=== PATIENT | female | born 1975 | race Caucasian/White ===

== ENCOUNTER → 2017-03-14 | Outpatient (CLI) | payer OTHER | LOC: COL.RAD 10:21 | DX: R10.32 Left lower quadrant pain (principal); Z90.710 Acquired absence of both cervix and uterus; Z90.722 Acquired absence of ovaries, bilateral ==

== ENCOUNTER → 2017-08-20 | Outpatient (REF) | LOC: WSOH 09:20 | DX: Z02.89 Encounter for other administrative examinations (principal) ==

== ENCOUNTER → 2017-11-26 | Outpatient (CLI) | payer OTHER | LOC: MHCPAIN 13:54 | DX: G89.29 Other chronic pain (principal); M47.817 Spondylosis without myelopathy or radiculopathy, lumbosacral region; M79.2 Neuralgia and neuritis, unspecified | CPT/HCPCS: G0463 ==

== ENCOUNTER → 2018-03-16 | Outpatient (CLI) | payer OTHER | LOC: COL.RAD 09:00 | DX: K21.9 Gastro-esophageal reflux disease without esophagitis (principal); K22.4 Dyskinesia of esophagus ==